=== PATIENT | female | born 1945 | race Caucasian/White ===

== ENCOUNTER 2017-03-08 19:31 | Emergency (ER) | payer MEDICARE, OTHER ==
--- NOTE | ~2017-03-08 | ER ---
PATIENT'S NAME: LIANA SALAZAR [facility] AGE: 71 Y [address] ROOM: [place] [address] LOCATION: [facility] ADMIT DATE: 03/08/2017 ER/Outpatient Report DISCHARGE DATE: 03/08/2017 FAMILY PHYSICIAN: PHYSICIAN, NO ATTENDING PHYSICIAN: Meek Ge Time of patient's Arrival: 1931 hours. Time of patient's Evaluation: 1945 hours. CHIEF COMPLAINT: Left lower leg swelling. HISTORY OF PRESENT ILLNESS: This is a 71-year-old female presents to the ER, who states she is here visiting from [place]. The patient states she noticed increased swelling of her left lower extremity approximately 2 days ago. She states she had a little difficulty getting around the grocery store. A day before she had attended [place]. She states she was able to drive here and she had to stop several times to pee, so she was out of the car. She states that she does wear compression hose to her lower extremities and despite using those she has continued to notice swelling. She has little bit of tenderness to her medial aspect of her calf. She denies any shortness of breath. No chest pain. No recent illness. No fever or cough. She states she has no troubles with urination, but does have to pee frequently and states that her bowels are normal today. She denies any other problems at this time. ALLERGIES: PLEASE SEE MEDICATION LIST IN NURSE'S NOTES. MEDICATIONS: Please see medication list in nurse's notes. PAST MEDICAL HISTORY: 1. History of DVT and pulmonary emboli. 2. History of SVT. 3. She has hypercholesterolemia, history of cervical cancer with hysterectomy. 4. She has had a bilateral total knees, appendectomy, cholecystectomy, and a gastric bypass. SOCIAL HISTORY: Denies smoking, drug, or alcohol use.. REVIEW OF SYSTEMS: All systems reviewed were negative with exception of those discussed in the PATIENT'S NAME: LIANA SALAZAR [facility] AGE: 71 Y [address] ROOM: [place] [address] LOCATION: [facility] ADMIT DATE: 03/08/2017 ER/Outpatient Report DISCHARGE DATE: 03/08/2017 FAMILY PHYSICIAN: PHYSICIAN, NO ATTENDING PHYSICIAN: Meek Ge HPI. PHYSICAL EXAMINATION: VITAL SIGNS: Height 5 feet 2 inches stated, weight 83.7 kg taken, blood pressure is 103/55, pulse 87, respirations 16, temperature 97.7 degrees tympanically, and saturations 99% on room air. Lyons Coma Score is 15. GENERAL: Alert, calm, and well-developed 71-year-old, in no acute distress. HEENT. Head: Normocephalic. Does display moist mucous membranes. LUNGS: Clear to auscultation bilaterally. No wheezes or crackles. HEART: Regular rate and rhythm. ABDOMEN: Soft, it is nontender. She has good bowel sounds throughout. No masses were palpated. EXTREMITIES: The patient has swelling to her left calf compared to her right. We did measure that, left calf was measuring 46 cm and right calf was measuring 43 cm. There is no erythema noted to the skin, but she does have some tenderness to her left calf. She has good pedal pulses. Good sensation in bilateral lower extremities. LABORATORY DATA: CBC: White count is 6.7, hemoglobin is 9.3, platelets 313. ANC is 4.2. CMS: Calcium is 7.2, albumin 1.5, total protein 4.4, sodium 143, potassium 4.0, BUN 22, creatinine 0.9. D-dimer was 0.38. Ultrasound of the lower extremities were negative and reported by chiller technician. IMPRESSION: 1. Left lower leg swelling. 2. Chronic anemia. ASSESSMENT AND PLAN: The patient states she feels comfortable going home. We will have her continue to monitor symptoms closely. She is to continue to do her compression socks and elevate her legs. I would like her to follow up with primary care physician or she should return to the emergency room if any of her symptoms worsen. The patient understands and agrees with care. YURI WHITING PA-C FOR MD DAYAMI LEWIS/lauro /[id number] d: t: 03/11/17 1141, OUTPATIENT REPORT
--- NOTE | ~2017-03-08 | ENPV ---
Vascular Lower Extremities DVT Study Procedure Demographics Patient Name LIANA SALAZAR Date of Study 03/08/2017 Patient Number [id number] Gender Female Date of 1945 Age 71 Visit Number [id number] Height Accession Number [id number] Weight Room Number BSA BMI Referring Miquel Sauceda MD Physician SHAYY Physician Physician Ordering Physician Miquel LUCAS Machine Molder Care Transition Mgr Benny Santos, T Conclusions Summary No evidence of deep vein thrombosis or superficial thrombus in the left lower extremity. Significant superficial edema was visualized in the left calf. Procedure Type of Study: Veins:Lower Extremities DVT Study, Lower Extremity Left. Indications for Study:Unilateral pain and edema. Additional Indications:Left lower extremity pain/edema Appropriate Use Criteria:9 Patient Status:STAT. Study Location:ER. Technical Quality:Adequate visualization. - Preliminary reported to:Waqas Lafleur in the ED. Velocities are measured in cm/s ; Diameters are measured in cm Right Lower Extremities DVT Study Measurements Right 2D and Doppler Measurements + + + + +------+------+ + !Location !Visualized!Compressibility!Thrombosis!Signal!Reflux!Reflux ! ! ! ! ! ! ! !(sec) ! + + + + +------+------+ + !Common !Yes !Yes !None !Phasic!No ! ! !Femoral ! ! ! ! ! ! ! + + + + +------+------+ + Left Lower Extremities DVT Study Measurements Left 2D and Doppler Measurements + + + + +------+------+ + !Location !Visualized!Compressibility!Thrombosis!Signal!Reflux!Reflux ! ! ! ! ! ! ! !(sec) ! + + + + +------+------+ + !GSV Thigh !Yes !Yes !None !Phasic!No ! ! + + + + +------+------+ + !Common !Yes !Yes !None !Phasic!No ! ! !Femoral ! ! ! ! ! ! ! + + + + +------+------+ + !Prox !Yes !Yes !None !Phasic!No ! ! !Femoral ! ! ! ! ! ! ! + + + + +------+------+ + !Mid Femoral!Yes !Yes !None !Phasic!No ! ! + + + + +------+------+ + !Dist !Yes !Yes !None !Phasic!No ! ! !Femoral ! ! ! ! ! ! ! + + + + +------+------+ + !Popliteal !Yes !Yes !None !Phasic!No ! ! + + + + +------+------+ + !Gastroc !Yes !Yes !None ! ! ! ! + + + + +------+------+ + !PTV !Yes !Yes !None ! ! ! ! + + + + +------+------+ + !Peroneal !Yes !Yes !None ! ! ! ! + + + + +------+------+ + Signature dtt: KING[place] DEJESUS dtkhadar: 03/08/172026 Physician Self Edit
[2017-03-08 20:25] LABS: BASOPHIL % 0.4 %; EOSINOPHIL # 0.4 K/uL (0.0-0.5); EOSINOPHIL % 5.2 %; HEMATOCRIT 29.8 % (33.0-46.0); HEMOGLOBIN 9.3 g/dL (10.0-15.0); IMMATURE GRANULOCYTE % 0.3 %; LYMPHOCYTE # 1.7 K/uL (0.8-4.0); LYMPHOCYTE % 24.8 %; MCHC 31.2 gm/dL (32.0-36.5); MCV 102.4 fl (83.0-98.0); MONOCYTE # 0.4 K/uL (0.0-1.0); MONOCYTE % 6.5 %; NEUTROPHIL # (ANC) 4.2 K/uL (1.8-7.8); NEUTROPHIL % 62.8 %; NRBC % 0 /100WBC (0-0.00); PLATELET COUNT 313 K/uL (150-450); RBC 2.91 M/uL (3.50-5.50); RDW-CV 13.6 % (11.9-14.6); WBC 6.7 K/uL (4.0-11.0)
[2017-03-08 20:45] LABS: CREATININE 0.9 mg/dL (0.5-1.1); TOTAL BILIRUBIN 0.2 mg/dL (0.0-1.5)
[2017-03-08 20:46] LABS: ALBUMIN 1.5 gm/dL (3.5-5.0); CALCIUM 7.4 mg/dL (8.5-10.5); TOTAL PROTEIN 4.4 g/dL (6.0-8.4)
== END 2017-03-08 20:59 | disposition disaster alternative care site (69) ==
LOC: GMED 19:31
PROVIDERS: Physician Assistant Medical
DX: M79.89 Other specified soft tissue disorders (principal); D64.9 Anemia, unspecified; E78.00 Pure hypercholesterolemia, unspecified; Z96.653 Presence of artificial knee joint, bilateral; Z90.49 Acquired absence of other specified parts of digestive tract; Z86.718 Personal history of other venous thrombosis and embolism; Z98.84 Bariatric surgery status; Z88.0 Allergy status to penicillin; Z88.2 Allergy status to sulfonamides; Z79.899 Other long term (current) drug therapy; Z79.82 Long term (current) use of aspirin; Z79.01 Long term (current) use of anticoagulants